=== PATIENT | male | born 2000 | race Two or more races ===

== ENCOUNTER 2023-01-20 21:03 | Emergency (ER) | payer OTHER ==
[~2023-01-20] VITALS: Ht 180.3 cm; Wt 95.9 kg
[2023-01-20 21:16] VITALS: BP 103/84
== END 2023-01-20 22:45 | disposition home or self-care (01) ==
LOC: EMS 21:11
DX: S50.11XA Contusion of right forearm, initial encounter (principal); W22.8XXA Striking against or struck by other objects, initial encounter; Y93.66 Activity, soccer; Y92.89 Other specified places as the place of occurrence of the external cause; Y99.8 Other external cause status
CPT/HCPCS: 99284; 73090-TC; 73110-TC; Z7502